=== PATIENT | female | born 1975 | race Caucasian/White ===

== ENCOUNTER 2021-06-02 09:26 | Inpatient (IN) | payer BC, OTHER ==
[2021-05-26 09:32] VITALS: BMI 42.5
[2021-06-02] MEDS ORDERED: BUPIVACAINE HCL/PF 0.25% (2.5MG/ML) 10 ML VIAL ONE (09:37)
[2021-06-02] MEDS ORDERED: MIDAZOLAM HCL 2 MG/2 ML SINGLE DOSE VIAL ONE (10:00)
[2021-06-02] MEDS ORDERED: BUPIVACAINE HCL/PF 0.5% (5MG/ML) 10 ML VIAL ONE (10:00)
[2021-06-02] MEDS ORDERED: BUPIVACAINE LIPOSOME/PF (EXPAREL) 266 MG/20 ML VIAL ONE (10:00)
[2021-06-02] MEDS ORDERED: fentaNYL CITRATE 250 MCG/5 ML VIAL ONE (10:32)
[2021-06-02] MEDS ORDERED: PROPOFOL 20 ML ONE ×2 (10:32)
[2021-06-02] MEDS ORDERED: ROCURONIUM BROMIDE 50 MG/5 ML SYRINGE ONE (10:33)
[2021-06-02] MEDS ORDERED: GLYCOPYRROLATE 0.2 MG/1 ML VIAL ONE (12:59)
[2021-06-02] MEDS ORDERED: NEOSTIGMINE METHYLSULFATE 0.5 MG/1 ML - 10 ML MDV ONE (12:59)
[2021-06-02] MEDS ORDERED: HYDROmorphone HCL/PF 1 MG/ML VIAL IVPB PRN (13:06)
[2021-06-02] MEDS ORDERED: ONDANSETRON 4 MG/2 ML VIAL IVPB PRN (13:08)
[2021-06-02] MEDS ORDERED: PROMETHAZINE HCL 25 MG/1 ML VIAL ONE (13:17)
[2021-06-02] MEDS ORDERED: PROMETHAZINE HCL 25 MG/1 ML VIAL IVPUSH PRN (13:25)
[2021-06-02] MEDS ORDERED: ONDANSETRON 4 MG/2 ML VIAL IVPUSH PRN (13:25)
[2021-06-02] MEDS ORDERED: FAMOTIDINE 20 MG PREMIXED IVPB IVPB ONE (13:30)
[2021-06-02] MEDS ORDERED: FAMOTIDINE 20 MG/50 ML IVPB 20 MG/50 ML MG IVPB ONE (13:36)
[2021-06-02 14:03] LABS: HEMATOCRIT 40.6 % (32.4-45.2); MCH 32.5 pg (25.7-33.7); MCHC 34.5 g/dl (32.0-36.0); MEAN PLT VOLUME 8.2 fl (7.5-11.1); PLATELET COUNT 333 10^3/uL (134-434); RBC 4.32 M/mm3 (3.60-5.2); RDW 12.9 % (11.6-15.6); WHITE BLOOD COUNT 12.7 K/mm3 (4.0-10.8)
[2021-06-02 14:10] LABS: ALBUMIN 3.8 g/dl (3.4-5.0); BILIRUBIN,TOTAL 0.5 mg/dl (0.2-1); CALCIUM 8.8 mg/dl (8.5-10); CREATININE 0.8 mg/dl (0.55-1.3); TOT PROT 6.8 g/dl (6.4-8.2)
[2021-06-02] MEDS: METOCLOPRAMIDE HCL INJECTION 10 MG/2 ML VIAL IVPUSH SCH ×2 (14:35→20:43)
[2021-06-02] MEDS: HYDROmorphone HCL/PF 1 MG/ML VIAL IVPB PRN ×2 (17:56→22:17)
[2021-06-02] MEDS ORDERED: SODIUM CHLORIDE 500 ML IV STA (18:52)
[2021-06-02] MEDS: SODIUM CHLORIDE 1,000 ML IV SCH (20:17)
[2021-06-02] MEDS: FAMOTIDINE 20 MG/50 ML IVPB 20 MG/50 ML MG IVPB SCH (22:17)
[2021-06-02 22:47] LABS: HEMATOCRIT 43.1 % (32.4-45.2); HEMOGLOBIN 14.1 GM/dl (10.7-15.3); MCH 31.1 pg (25.7-33.7); MCHC 32.8 g/dl (32.0-36.0); MEAN CELL VOLUME 94.6 fl (80-96); MEAN PLT VOLUME 8.1 fl (7.5-11.1); PLATELET COUNT 302 10^3/uL (134-434); RBC 4.55 M/mm3 (3.60-5.2); RDW 12.8 % (11.6-15.6); WHITE BLOOD COUNT 11.1 K/mm3 (4.0-10.8)
[2021-06-02 22:57] LABS: ALBUMIN 3.5 g/dl (3.4-5.0); BILIRUBIN,TOTAL 0.5 mg/dl (0.2-1); CALCIUM 8.7 mg/dl (8.5-10); CREATININE 0.8 mg/dl (0.55-1.3); TOT PROT 6.6 g/dl (6.4-8.2)
[2021-06-02] MEDS ORDERED: SODIUM CHLORIDE 500 ML IV ONE (23:45)
[2021-06-03] MEDS: METOCLOPRAMIDE HCL INJECTION 10 MG/2 ML VIAL IVPUSH SCH ×3 (01:48→15:12)
[2021-06-03 07:54] LABS: HEMATOCRIT 39.3 % (32.4-45.2); HEMOGLOBIN 13.1 GM/dl (10.7-15.3); MCH 31.9 pg (25.7-33.7); MCHC 33.4 g/dl (32.0-36.0); MEAN CELL VOLUME 95.4 fl (80-96); MEAN PLT VOLUME 7.9 fl (7.5-11.1); PLATELET COUNT 285 10^3/uL (134-434); RBC 4.12 M/mm3 (3.60-5.2); RDW 13.2 % (11.6-15.6); WHITE BLOOD COUNT 12.9 K/mm3 (4.0-10.8)
[2021-06-03 08:14] LABS: ALBUMIN 3.2 g/dl (3.4-5.0); BILIRUBIN,TOTAL 0.7 mg/dl (0.2-1); CALCIUM 8.2 mg/dl (8.5-10); CREATININE 0.6 mg/dl (0.55-1.3); TOT PROT 5.9 g/dl (6.4-8.2)
[2021-06-03] MEDS: FAMOTIDINE 20 MG/50 ML IVPB 20 MG/50 ML MG IVPB SCH (10:03)
[2021-06-03] MEDS: SODIUM CHLORIDE 1,000 ML IV SCH (13:11)
[2021-06-03 14:26] VITALS: BP 154/98; PULSE 95; TEMP 98.6
== END 2021-06-03 16:56 | disposition home or self-care (01) | DRG 621 ==
LOC: FM/S 09:26
PROVIDERS: ADMIT Surgery; ATTEND Surgery
PROC: 0DB64Z3 Excision of Stomach, Percutaneous Endoscopic Approach, Vertical (ICD-10-PCS; principal; 2021-06-02 11:26)
PROC: 0FB24ZX Excision of Left Lobe Liver, Percutaneous Endoscopic Approach, Diagnostic (ICD-10-PCS; 2021-06-02 11:26)
DX: E66.01 Morbid (severe) obesity due to excess calories (principal); R16.0 Hepatomegaly, not elsewhere classified; Z68.41 Body mass index [BMI] 40.0-44.9, adult
CPT/HCPCS: 36415; 74240-TC-FY; 80053; 84703; 85027; 86850; 86900; 86901; 94760